=== PATIENT | male | born 1985 | race Caucasian/White ===

== ENCOUNTER 2018-06-24 07:01 | Day surgery (SDC) | payer OTHER ==
[2018-06-24] MEDS ORDERED: RECTICARE30 GM TOP (13:01)
[2018-06-24] MEDS ORDERED: DICLOFENAC SODI75 MG PO (13:01)
[2018-06-24] MEDS ORDERED: DICY20TA PO (13:02)
== END 2018-06-24 14:40 | disposition home or self-care (01) ==
LOC: AMB-ENDOS 07:01
DX: K57.30 Diverticulosis of large intestine without perforation or abscess without bleeding (principal); K64.8 Other hemorrhoids

== ENCOUNTER 2022-06-14 05:45 | Day surgery (SDC) | payer OTHER ==
[~2022-06-14] VITALS: Ht 182.9 cm; Wt 99.8 kg
[~2022-06-14 05:45] MED LIST: DICLOFENAC SODI75 MG PO; DICY20TA PO; RECTICARE30 GM TOP
[2022-06-14] MEDS ORDERED: PERCOCET 5-3251 EACH PO (08:16)
[2022-06-14] MEDS ORDERED: RECTICARE30 GM TOP (08:17)
== END 2022-06-14 12:15 | disposition home or self-care (01) ==
LOC: CIR.AMB 05:45
PROVIDERS: ATTEND Surgery
DX: K64.2 Third degree hemorrhoids (principal); R19.4 Change in bowel habit; R10.31 Right lower quadrant pain; Z80.0 Family history of malignant neoplasm of digestive organs; Z83.71 Family history of colonic polyps; Z20.822 Contact with and (suspected) exposure to COVID-19; I10 Essential (primary) hypertension